=== PATIENT | female | born 2000 | race African-American/Black ===

== ENCOUNTER 2021-07-05 13:10 | Outpatient (CLI) | payer OTHER ==
[2021-07-05 13:37] LABS: PLATELET COUNT 352 K/uL (152-353)
[2021-07-05 13:44] LABS: POTASSIUM 3.6 mmol/L (3.6-5.2)
== END 2021-07-05 18:58 | disposition home or self-care (01) ==
LOC: US 13:10
PROVIDERS: ATTEND Nurse Practitioner Family
DX: Z33.1 Pregnant state, incidental (principal); R10.32 Left lower quadrant pain
CPT/HCPCS: 36415; 80053; 84702; 85027